=== PATIENT | female | born 1940 ===

== ENCOUNTER 2022-06-12 18:51 | Outpatient (REF) | payer MEDICARE, OTHER, SELFPAY ==
[2022-06-12 14:53] LABS: HCT 42.9 % (36.0-46.0); HGB 13.2 g/dL (11.2-15.7); MCH 28.8 pg (27.0-33.0); MCHC 30.8 % (32.0-36.0); MCV 94 fL (80-95); MPV 11.6 fL (8.0-11.0); Platelet Count 268 10^3/uL (130-400); RBC 4.58 10^6/uL (3.93-5.22); RDW 12.8 % (11.7-14.6); RDW-SD 43.8 fL
[2022-06-12 15:24] LABS: Calculated LDL 178 mg/dL (<100); Cholesterol 264 mg/dL (<200); HDL Cholesterol 65 mg/dL (40-60); TSH (W/Ref FT4) 2.08 uIU/mL (0.36-3.74); Triglyceride 105 mg/dL (<150)
[2022-06-12 20:45] LABS: ALT 16 U/L (14-59); AST 18 U/L (15-37); Albumin 3.7 g/dL (3.4-5.0); Alkaline Phosphatase 93 U/L (46-116); Anion Gap 10.5 mmol/L (3-11); BUN 21 mg/dL (7-18); Bilirubin, Total 0.4 mg/dL (0.2-1.0); CO2 27.5 mmol/L (21.0-32.0); CREATININE 0.9 mg/dL (0.55-1.02); Calcium 9.5 mg/dL (8.5-10.1); Chloride 106 mmol/L (98-107); Estimated GFR 64.23 (mL/min/1.73m2); Glucose 85 mg/dL (74-106); Potassium 5.1 mmol/L (3.5-5.1); Sodium 144 mmol/L (136-145); Total Protein 7.4 g/dL (6.4-8.2)
[2022-06-15 05:26] LABS: Vitamin D 25 Total 42.5 ng/mL (30-100)
== END 2022-06-12 18:52 | disposition home or self-care (01) ==
LOC: NCHCN 18:51
PROVIDERS: Visit Provider Nurse Practitioner Family
DX: I10 Essential (primary) hypertension (principal)
CPT/HCPCS: 80053; 80061; 82306; 85027; 84443